=== PATIENT | male | born 1950 | race African-American/Black ===

== ENCOUNTER 2023-10-24 18:08 | Emergency (ER) | payer MEDICAID, SELFPAY ==
--- NOTE | ~2023-10-24 | XR_ITS ---
EXAMINATION: XR CHEST CLINICAL INFORMATION: Pain COMPARISON: None available. TECHNIQUE: 2 views of the chest were obtained. FINDINGS: The cardiac and mediastinal contours are stable. Subsegmental atelectasis at the lung bases. No pleural effusion or pneumothorax. Degenerative changes of the spine. XR/XR chest 2V IMPRESSION: Subsegmental atelectasis at the lung bases.
[2023-10-24 18:40] VITALS: BP 148/82; PULSE 78; O2SAT 97
[2023-10-24 18:49] VITALS: BP 126/63; PULSE 60; RESP 18; TEMP 36.5; O2SAT 95; BMI 25.1
--- NOTE | 2023-10-24 18:53 | ECG_ITS ---
Test Reason : NOSE BLEED Blood Pressure : / mmHG Vent. Rate : 058 BPM Atrial Rate : 058 BPM P-R Int : 202 ms QRS Dur : 096 ms QT Int : 442 ms P-R-T Axes : 055 -19 -15 degrees QTc Int : 433 ms Sinus bradycardia Inferior infarct , age undetermined Abnormal ECG No previous ECGs available Referred By: Baltazar Perez Electronically Signed By:MANUELA OLIVIA MD
--- NOTE | 2023-10-24 18:55 | ED.GENADULT ---
HPI - General Adult General Chief complaint: General Medical Stated complaint: nosebleed Time Seen by Provider: 10/24/23 18:34 Source: patient, RN notes reviewed, old records reviewed and other (Family friend) Mode of arrival: EMS Limitations: language barrier (Patient speaks Uzbek) History of Present Illness HPI narrative: 73-year-old male with past medical history significant for hypertension, diabetes presents for evaluation of a nosebleed. Patient reports that his no started to bleed about 3 hours prior to arrival. He reports he went through for tissue papers of blood. On arrival to the ED the patient reports that his nosebleed seems to have subsided He also complains of left shoulder and left chest pain. He states this happens ?every time I sleep I my left side. ? He reports the pain is worse when he moves his left arm He denies any history of coronary artery disease The patient takes simvastatin, metformin, aspirin but no anticoagulation No other complaints or concerns at this time The patient reports relocate this area about 2 months ago from [place] Related Data Allergies Allergy/AdvReac Type Severity Reaction Status Date / Time Penicillins AdvReac Mild Dizziness Verified 10/24/23 18:52 Review of Systems Constitutional: Constitutional: Denies body ache(s), Denies chills, Denies fever(s) and Denies headache(s) Eyes: Eyes: Denies blurry vision ENT: Denies headache(s) and Reports epistaxis Cardiovascular: Cardiovascular: Reports chest pain and Denies dyspnea Respiratory: Respiratory: Denies cough and Denies dyspnea Gastrointestinal: Gastrointestinal: Denies abdominal pain, Denies nausea and Denies vomiting Musculoskeletal: Musculoskeletal: Reports arthralgias, Denies joint swelling and Denies limited range of motion Integumentary/Breasts: Skin/Breast: Denies rash Neurologic: Denies headache(s) PMFSH Social History Social History Smoked in Last 30 Days: Yes Use of substances other than those prescribed or required for medical reasons: No Advance Directives: No Advance Directives Information Provided: No Physical Exam ED Vital Signs: Vital Signs - 24 hr 10/24/23 18:49 Temperature 97.7 F Pulse Rate 60 Respiratory Rate 18 Blood Pressure 126/63 Pulse Oximetry 95 Oxygen Delivery Method Room Air BMI result Body Mass Index 25.1 Const General: healthy appearing, comfortable, no acute distress, alert and awake Nutritional Appearance: well nourished Orientation/consciousness: patient oriented x3 HENMT Head: Yes normocephalic and Yes atraumatic Eyes Eyelids: Yes eyelids normal Conjunctivae: conjunctivae normal Sclerae: sclerae normal Corneas: corneas normal Pupils: Equal, round and reactive pupils present EOM: EOMs intact bilaterally Neck Neck: Yes full ROM Chest Other: No deformity to the left chest. There is tenderness to palpation left chest wall without crepitus. Resp Effort & Inspection: normal respiratory effort, able to speak in complete sentences and not labored Cardio Rate: regular rate Rhythm: regular rhythm GI Inspection: Yes distended (Soft but slightly distended abdomen) Palpation (GI): Soft to palpation, not firm, nontender, no guarding and not rigid Skin General skin exam: elasticity normal Neuro General: patient oriented x3 Cranial nerves: Yes Equal, round and reactive pupils present and Yes Bilaterally intact EOM present Cognition (Neuro): normal cognition Extrem Other: Moving all extremities well without any obvious deformities. This includes the left upper extremity at the shoulder and the elbow. No tenderness to palpation. Course Reevaluation(s) Reevaluation #1: Patient's repeat troponin without any significant changes. Remains flat. He has had no further nosebleeds. Patient is stable for discharge at this time. He does have a PCP he is able to follow-up with. Time: 22:51 Medical Decision Making Medical Decision Making [facility] Narrative: 73-year-old male presents for evaluation of left-sided chest pain as well as epistaxis. His epistaxis appears to have subsided prior to arrival to the ED. Plan for cardiac workup at this time. His pain is reproducible on exam and he has no history of coronary artery disease, so musculoskeletal origin appears more likely at this time. The patient reports a history of left-sided chest and shoulder pain after sleeping on his left side. Plan for EKG, labs. Differential Diagnosis Differential Diagnoses: The differential diagnosis associated with the presentation includes Epistaxis Anemia ACS Chest wall pain Arthritis Calcific tendinitis Admission/Observation Consideration of admission/observation: Escalation of care including admission/observation considered Consider admission for chest pain, but the patient ruled out for ACS Lab Data [facility] Lab Attestation statement: I reviewed the patient's lab results. Patient has a very mild pancytopenia with leukopenia 4.3, hemoglobin 12.7 hematocrit of 40.5. Platelet count of 113. No significant electrolyte abnormalities. Initial troponin of 9.2 with a repeat of 13.7. 10/24/23 19:49 10/24/23 19:49 Labs: Lab Results 10/24/23 10/24/23 Range/Units 19:49 22:17 WBC 4.3 L (4.8-10.8) X10*3/uL RBC 4.60 (4.60-5.80) X10*6/uL Hgb 12.7 L (14.0-18.0) g/dl Hct 40.5 L (42.0-52.0) % MCV 88.0 (80.0-98.0) fL MCH 27.6 (27.0-33.0) pg MCHC 31.4 (31.0-36.0) g/dl RDW 14.3 (11.0-16.0) % Plt Count 113 L (160-400) X10*3/uL MPV 10.5 (9.4-12.4) fL Immature Gran % (Auto) 0.5 H (0.0-0.4) % Neut % (Auto) 57.9 (45-73) % Lymph % (Auto) 21.9 (20-40) % [place] % (Auto) 9.6 (2-11) % Eos % (Auto) 9.9 H (0-4) % Baso % (Auto) 0.2 (0-2) % Lymph # (Auto) 0.9 L (1.2-4.9) X10*3/uL [place] # (Auto) 0.4 (0.1-1.2) X10*3/uL Eos # (Auto) 0.4 (0.0-0.4) X10*3/uL Baso # (Auto) 0.0 (0.0-0.2) X10*3/uL Abs Immat Gran (auto) 0.02 (0.00-0.03) X10*3/uL Absolute Neuts (auto) 2.5 (2.0-8.3) x10*3/uL Absolute Nucleated RBC 0.000 (0.0-0.012) X10*3/uL Nucleated RBC % (auto) 0.0 (0.0-0.2) /100WBC PT 14.3 H (11.1-13.3) SEC INR 1.2 H (0.9-1.1) Sodium 141 (135-145) mmol/L Potassium 5.1 (3.3-5.1) mmol/L Chloride 107 (96-108) mmol/L Carbon Dioxide 28 (22-29) mmol/L Anion Gap 11 L (12-20) BUN 22 H (9-16) mg/dL Creatinine 0.91 (0.5-1.4) mg/dL Estim Creat Clear Calc 81.7 Estimated GFR > 60 Random Glucose 98 (60-115) mg/dL Calcium 10.2 (8.4-10.2) mg/dL Total Bilirubin 0.4 (0.0-1.0) mg/dL AST 15 (5-37) U/L ALT 14 (0-40) U/L Alkaline Phosphatase 109 (39-117) U/L Troponin I High Sens 9.2 13.7 (<3.5-35.0) ng/L Total Protein 7.2 (6.5-8.0) g/dL Albumin 3.8 (3.5-5.0) g/dL Lipase 25 (8-78) U/L Influenza Type A (PCR) NEGATIVE (Negative) Influenza Type B (PCR) NEGATIVE (Negative) RSV RNA Qual (PCR) NEGATIVE (Negative) SARS-CoV-2 RNA (RT-PCR) NEGATIVE (Negative) Independent Interpretation I performed an independent interpretation of an: EKG (Sinus bradycardia rate of 58 beats per minute. No ST segment elevations or depressions. T-wave inversion in lead 3 and AVF. No previous for comparison) and Plain X-Ray (No focal infiltrate) Radiology Impression Discussion of test interpretation with radiology: I have reviewed the radiologist's reading. (Atelectasis) Discharge Plan Discharge Clinical Impression: Epistaxis, Chest pain Patient Disposition: Home, Self-Care Instructions: Chest Pain (ED), Nosebleed (ED) Additional Instructions: Your workup in the ER today was reassuring. Include your blood work, EKG, and chest x-ray. You have not had any nosebleed in the emergency department. I recommend that you sleep with a humidifier next to her bed at night to prevent further nosebleeds Call your primary doctor in the morning to schedule follow-up
[2023-10-24 19:54] LABS: MANUAL DIFF FLAG NO
[2023-10-24 19:55] LABS: Basophils Percent Auto 0.2 % (0-2); Eosinophils Absolute Auto 0.4 X10*3/uL (0.0-0.4); Eosinophils Percent Auto 9.9 % (0-4); Hematocrit 40.5 % (42.0-52.0); Hemoglobin 12.7 g/dl (14.0-18.0); Imm Gran Abs Auto 0.02 X10*3/uL (0.00-0.03); Imm Gran Pct Auto 0.5 % (0.0-0.4); Lymphocytes Absolute Auto 0.9 X10*3/uL (1.2-4.9); Lymphocytes Percent Auto 21.9 % (20-40); Mean Corpuscular HGB Conc 31.4 g/dl (31.0-36.0); Mean Corpuscular Hemoglobin 27.6 pg (27.0-33.0); Mean Platelet Volume 10.5 fL (9.4-12.4); Monocytes Absolute Auto 0.4 X10*3/uL (0.1-1.2); Monocytes Percent Auto 9.6 % (2-11); Neutrophils Absolute Auto 2.5 x10*3/uL (2.0-8.3); Neutrophils Percent Auto 57.9 % (45-73); Platelet Count 113 X10*3/uL (160-400); Red Cell Distribution Width 14.3 % (11.0-16.0); White Blood Count 4.3 X10*3/uL (4.8-10.8)
[2023-10-24 20:02] LABS: INTERNATIONAL NORM RATIO 1.2 (0.9-1.1); Prothrombin Time 14.3 SEC (11.1-13.3)
[2023-10-24 20:09] LABS: Alanine Aminotransferase 14 U/L (0-40); Albumin Level 3.8 g/dL (3.5-5.0); Alkaline Phosphatase 109 U/L (39-117); Anion Gap 11 (12-20); Aspartate Amino Transferase 15 U/L (5-37); Bilirubin Total 0.4 mg/dL (0.0-1.0); Blood Urea Nitrogen 22 mg/dL (9-16); Calcium 10.2 mg/dL (8.4-10.2); Carbon Dioxide 28 mmol/L (22-29); Chloride 107 mmol/L (96-108); Creatinine Clr Calc Pharmacy 81.7; Estimated Glomerular Filt Rate > 60; Glucose Random 98 mg/dL (60-115); Lipase 25 U/L (8-78); Potassium 5.1 mmol/L (3.3-5.1); Sodium 141 mmol/L (135-145); Total Protein 7.2 g/dL (6.5-8.0)
[2023-10-24 20:17] LABS: Troponin-I High Sensitivity 9.2 ng/L (<3.5-35.0)
[2023-10-24 20:31] LABS: Influenza A PCR NEGATIVE (Negative); Influenza B PCR NEGATIVE (Negative); Resp Syncy Virus RNA Qual PCR NEGATIVE (Negative); SARS COV2 PCR INHOUSE NEGATIVE (Negative)
[2023-10-24 22:44] LABS: Troponin-I High Sensitivity 13.7 ng/L (<3.5-35.0)
[2023-10-24 23:07] VITALS: BP 139/71; PULSE 61; RESP 15; TEMP 36.3; O2SAT 94
== END 2023-10-24 23:08 | disposition home or self-care (01) ==
PROVIDERS: Physician Assistant; Emergency Provider Internal Medicine
DX: R04.0 Epistaxis (principal); R07.89 Other chest pain; R00.1 Bradycardia, unspecified; I10 Essential (primary) hypertension; E11.9 Type 2 diabetes mellitus without complications; Z20.822 Contact with and (suspected) exposure to COVID-19; Z11.52 Encounter for screening for COVID-19; Z79.899 Other long term (current) drug therapy
CPT/HCPCS: 0241U; 36415; 71046; 80053; 83690; 84484; 85025; 85610; 93005; 99283; 99284

== ENCOUNTER → 2023-10-24 18:53 | Outpatient (BNV) | payer MEDICAID, SELFPAY | PROVIDERS: Emergency Provider Internal Medicine; Visit Provider Internal Medicine Cardiovascular Disease | DX: R00.1 Bradycardia, unspecified (principal); R94.31 Abnormal electrocardiogram [ECG] [EKG] | CPT/HCPCS: 93010 ==

== ENCOUNTER 2025-07-23 17:05 | Emergency (ER) | payer MEDICAID, SELFPAY ==
[2025-07-23] VITALS (7 sets, daily range): BP systolic 115–129; BP diastolic 49–68; PULSE 54–68; RESP 16–18; TEMP 36.3–36.9; O2SAT 96–99; BMI 19.6
--- NOTE | ~2025-07-23 | CT_ITS ---
CLINICAL HISTORY: dizziness CT head without contrast Comparison: None provided Findings: BRAIN: No acute infarct, hemorrhage, or mass effect. No abnormal atrophy. CSF SPACES: No hydrocephalus or effacement of basal cisterns. SKULL: No calvarial fracture. SINUSES: Severe ethmoid and left frontal paranasal sinus disease. ORBITS: Limited views are unremarkable. OTHER: Negative. IMPRESSION: 1. No acute intracranial findings. This document has been electronically signed by: Filomena Foster MD on 07/23/2025 18:13:28
--- NOTE | ~2025-07-23 | CT_ITS ---
CLINICAL HISTORY: weight loss. fatigue. Mass, SBO CT abdomen and pelvis without contrast Comparison: None provided Findings: LIMITED CHEST: Scarring and atelectasis at the lung bases. Calcified right hilar lymph nodes. See separate CT chest. LIVER: No focal liver lesion. BILIARY: No gallbladder wall thickening, radiopaque stone, or ductal dilatation. PANCREAS: No mass or ductal dilatation. SPLEEN: No splenomegaly. KIDNEYS: No hydronephrosis or radiopaque stone. Small hypoattenuating lesions, too small to characterize however may represent cysts. ADRENALS: No nodule. VASCULAR: No aneurysm. RETROPERITONEUM: No lymphadenopathy or mass. BOWEL/MESENTERY: No evidence of obstruction. No free fluid or air. Large colonic stool burden. ABDOMINAL WALL: No mass or significant abnormality. URINARY BLADDER: Circumferential thickening of the bladder. PELVIC NODES: No pelvic lymphadenopathy. PELVIC ORGANS: Prostatomegaly. BONES: L1 superior endplate deformity, chronic appearing. OTHER: Negative. IMPRESSION: Large colonic stool burden. Prostatomegaly with circumferential thickening of the bladder. This may be due to chronic outlet obstruction, however correlate with urinalysis for cystitis. This document has been electronically signed by: Filomena Foster MD on 07/23/2025 18:20:18
--- NOTE | ~2025-07-23 | CT_ITS ---
CLINICAL HISTORY: weakness. Pneumonia? CT chest without contrast Comparison: None provided Findings: NECK BASE: Limited views of the thyroid are unremarkable. LUNGS/PLEURA: Emphysematous changes with scarring and atelectasis most pronounced the lower lobes. Scattered pulmonary nodules, the largest in the left upper lobe measuring 9 mm ( series 19, image 80). PULM VASCULAR: Poorly evaluated without IV contrast. MEDIASTINUM: Calcified mediastinal and right hilar lymph nodes. CARDIAC: No pericardial effusion. No cardiomegaly. AORTA: No aneurysm. CHEST WALL: No masses or axillary lymphadenopathy. LIMITED ABDOMEN: Separate CT abdomen pelvis. BONES: No acute fracture. IMPRESSION: 1. Emphysematous changes most pronounced at the lower lobes. 2. Scattered pulmonary nodules, largest in the left upper lobe measuring 9 mm. Follow-up per Fleischner criteria. This document has been electronically signed by: Filomena Foster MD on 07/23/2025 18:25:43
--- NOTE | 2025-07-23 17:11 | ECG_ITS ---
Test Reason : LOW BP Blood Pressure : */* mmHG Vent. Rate : 58 BPM Atrial Rate : 58 BPM P-R Int : 194 ms QRS Dur : 100 ms QT Int : 420 ms P-R-T Axes : 62 23 8 degrees QTcB Int : 412 ms Sinus bradycardia with Premature atrial complexes Inferior-posterior infarct (cited on or before 24-Oct-2023) Abnormal ECG When compared with ECG of 24-Oct-2023 19:25, Premature atrial complexes are now Present Referred By: Richie Mccracken Electronically Signed By: JACQUELINE PLUMMER
--- NOTE | 2025-07-23 17:15 | ED.GENADULT ---
HPI - General Adult General Chief complaint: Recheck/Abnormal Lab/Rx Stated complaint: Blood pressure 79/41 Time Seen by Provider: 07/23/25 19:18 History of Present Illness ED Provider: Caro OLMEDO narrative: The patient is a 75-year-old male who was at home today when he felt somewhat unwell. He had some dizziness and a bit of a headache. Apparently checked his blood pressure at home with his home blood pressure machine and it came at 79/41. This prompted him to come to the emergency room. He was feeling fine yesterday. While waiting to be seen in the emergency room his symptoms have largely resolved. He is feeling much better. He still has a mild headache but no lightheadedness. At no point did he have any chest pain or shortness of breath. No abdominal pain, nausea, vomiting. No diarrhea. No fever, sweats, chills. Related Data Allergies Allergy/AdvReac Type Severity Reaction Status Date / Time Penicillins AdvReac Mild Dizziness Verified 07/23/25 17:13 Review of Systems Review of Systems: Yes all other systems are reviewed and are negative [facility] Social History Social History Smoked in Last 30 Days: No Advance Directives: No Advance Directives Information Provided: Yes Physical Exam ED Vital Signs: Vital Signs - 24 hr 07/23/25 17:10 07/23/25 18:20 07/23/25 18:22 Temperature 97.3 F 98.4 F Pulse Rate 60 68 66 Respiratory Rate 18 16 Blood Pressure 129/60 115/60 118/56 L Pulse Oximetry 98 99 Oxygen Delivery Method Room Air Room Air 07/23/25 18:25 07/23/25 18:27 07/23/25 20:08 Temperature 97.6 F Pulse Rate 54 65 54 Respiratory Rate 18 Blood Pressure 116/49 L 117/61 129/68 Pulse Oximetry 96 Oxygen Delivery Method Room Air 07/23/25 20:13 Temperature 97.6 F Pulse Rate 54 Respiratory Rate 18 Blood Pressure 129/68 Pulse Oximetry 96 Oxygen Delivery Method Room Air BMI result Body Mass Index 19.6 Const Other: The patient is a very slim 75-year-old man who was awake and alert, pleasant and cooperative. He has not appear uncomfortable or appear acutely ill in any way. HENMT Other: The face is symmetrical. ?Mucous membranes moist. Posterior pharynx is normal. Eyes Other: Pupils are round equal, conjunctivae are clear, extraocular movements intact Neck Neck: Yes normal visual inspection, Yes full ROM, Yes no lymphadenopathy and Yes no JVD Resp Effort & Inspection: normal respiratory effort Auscultation: clear to auscultation bilaterally Cardio Rate: regular rate Rhythm: regular rhythm Heart sounds: S1 normal heart sound present and S2 normal heart sound present GI Other: Abdomen is soft and nontender Skin Other: Skin is dry and unremarkable Neuro Other: The patient is awake and alert with a normal mental status. Cranial nerves 2-12 are intact. He moves his extremities symmetrically and appropriately. He seems neurologically intact. Extrem Other: There is no calf swelling or tenderness. No asymmetry. No peripheral edema. Course Course Course Narrative: RME: 74 year male presents to ED for dizziness, headache, low blood pressure at home was 79/41 and also weight loss. Patient states he felt like the room is spinning. Patient denies any fever or chills. Exam negative for obvious neuro deficits. Labs EKG imaging ordered Medications Administered Discontinued Medications Generic Name Dose Route Start Last Admin Trade Name Lakshmi PRN Reason Stop Dose Admin Acetaminophen 975 mg 07/23/25 19:38 07/23/25 20:09 Acetaminophen 325 Mg Tablet PO 07/23/25 19:39 975 mg ONCE ONE Administration Medical Decision Making Medical Decision Making [facility] Narrative: The patient speaks Hungarian and Frisian. I communicated with him primarily through his son. The patient is a 75-year-old male who felt dizzy and lightheaded at home and apparently has a blood pressure of 79/41. He did not have a fever. He came to the emergency room because of the symptoms and his low blood pressure. On arrival here the patient was not hypotensive. The patient has a long wait to be seen by a provider. During that time the patient's symptoms had largely resolved. He was feeling better spontaneously. He has not had a fever. He has not had any other significant infectious symptoms. His exam seems very benign and reassuring. At triage a CT scan of the head, chest, in the abdomen and pelvis, all without contrast. None of the study show any definite acute findings. The abdominal CT shows a large colonic stool burden but does not indicate a fecal impaction or obstipation or stercoral colitis. The chest CT shows some pulmonary nodules but no other significant findings. The patient is creatinine is slightly higher than when last checked almost 2 years ago. His creatinine today is 1.18 today. Previously was 0.91. Perhaps this reflects some mild dehydration but no profound metabolic derangement. He has a normal troponin. His EKG is unchanged from previous. Overall he does not appear clinically unwell in his testing in the emergency room seems reassuring. I think he may be discharged home with the son to follow up with his regular providers or to return if worse. Lab Data 07/23/25 17:41 07/23/25 17:41 Labs: Lab Results 07/23/25 07/23/25 07/23/25 Range/Units 17:40 17:41 18:45 WBC 4.6 L (4.8-10.8) X10*3/uL RBC 4.92 (4.60-5.80) X10*6/uL Hgb 14.2 (14.0-18.0) g/dl Hct 43.8 (42.0-52.0) % MCV 89.0 (80.0-98.0) fL MCH 28.9 (27.0-33.0) pg MCHC 32.4 (31.0-36.0) g/dl RDW 13.3 (11.0-16.0) % Plt Count 118 L (160-400) X10*3/uL MPV 10.8 (9.4-12.4) fL Immature Gran % (Auto) 0.4 (0.0-0.4) % Neut % (Auto) 58.0 (45-73) % Lymph % (Auto) 25.2 (20-40) % [place] % (Auto) 10.1 (2-11) % Eos % (Auto) 6.1 H (0-4) % Baso % (Auto) 0.2 (0-2) % Lymph # (Auto) 1.2 (1.2-4.9) X10*3/uL [place] # (Auto) 0.5 (0.1-1.2) X10*3/uL Eos # (Auto) 0.3 (0.0-0.4) X10*3/uL Baso # (Auto) 0.0 (0.0-0.2) X10*3/uL Abs Immat Gran (auto) 0.02 (0.00-0.03) X10*3/uL Absolute Neuts (auto) 2.7 (2.0-8.3) x10*3/uL Absolute Nucleated RBC 0.000 (0.0-0.012) X10*3/uL Nucleated RBC % (auto) 0.0 (0.0-0.2) /100WBC Sodium 136 (135-145) mmol/L Potassium 5.0 (3.3-5.1) mmol/L Chloride 101 (96-108) mmol/L Carbon Dioxide 30 H (22-29) mmol/L Anion Gap 10 L (12-20) BUN 19 H (9-16) mg/dL Creatinine 1.18 (0.5-1.4) mg/dL Estim Creat Clear Calc 54.5 Estimated GFR > 60 Random Glucose 121 H (60-115) mg/dL Calcium 10.2 (8.4-10.2) mg/dL Total Bilirubin 0.3 (0.0-1.0) mg/dL AST 26 (5-37) U/L ALT 19 (0-40) U/L Alkaline Phosphatase 80 (39-117) U/L Troponin I High Sens 10.1 (<3.5-35.0) ng/L Total Protein 7.9 (6.5-8.0) g/dL Albumin 4.5 (3.5-5.0) g/dL Lipase 27 (8-78) U/L Urine Color Yellow Urine Appearance Clear Urine pH 6.5 (5.0-9.0) Ur Specific [place] 1.015 (1.005-1.025) Urine Protein Negative (Neg-Trace) mg/dL Urine Glucose (UA) >=1000 H (Negative) mg/dL Urine Ketones Negative (Negative) mg/dL Urine Blood Negative (Negative) Urine Nitrite Negative (Negative) Ur Leukocyte Esterase Negative (Negative) Urine RBC 0-2 (0-2) /HPF Urine WBC 0-5 (0-5) /HPF Ur Squamous Epith Cells 0-2 (0-2) /HPF Urine Bacteria None Seen (None Seen) Hyaline Casts 0-2 (0-2) /LPF COVID-19 (DEBBY) Negative (Negative) COVID-19 Clin Com See Note Influenza Type A (MIKE) Negative (Negative) Influenza Type B (MIKE) Negative (Negative) Influenza A & B Note See Note Independent Interpretation I performed an independent interpretation of an: EKG Interpretation: EKG at 17:29 shows sinus bradycardia at 58 beats per minute. No significant change from previous EKG. Discharge Plan Discharge Clinical Impression: Dizziness, Headache, Hypotension, Incidental pulmonary nodule Patient Disposition: Home, Self-Care Additional Instructions: Your testing today is not showing any acutely dangerous process. I do not have a good explanation for why you had low blood pressure earlier today. Your blood pressure currently seems fine as do your other vital signs. You may be mildly dehydrated. Please make sure you take a lot of fluid at home and over the next several days. You may use acetaminophen for any ongoing headache. Continue your other regular medications. The CAT scan of your chest showed some nodules in your lungs. The significance of this finding is unclear. Please follow up with your regular doctor to discuss how these will be monitored over time. Therefore please follow up with your regular doctor to discuss this incident and also the CAT scan results. If you feel significantly worse at any time please return to the emergency department. Referrals: [facility] [Provider Group] Interventions: ED Discharge Assessment Last Done: 07/23/25 20:13 Discharge Date/Time: 07/23/25 20:14 Print Language: Other
[2025-07-23 17:47] LABS: MANUAL DIFF FLAG NO
[2025-07-23 17:51] LABS: Imm Gran Abs Auto 0.02 X10*3/uL (0.00-0.03); Imm Gran Pct Auto 0.4 % (0.0-0.4); Lymphocytes Absolute Auto 1.2 X10*3/uL (1.2-4.9); NRBC Abs Auto 0.000 X10*3/uL (0.0-0.012); NRBC Pct Auto 0.0 /100WBC (0.0-0.2); PLT CLUMP 1; SCAN SMEAR FLAG 1
[2025-07-23 17:53] LABS: Hematocrit 43.8 % (42.0-52.0); Hemoglobin 14.2 g/dl (14.0-18.0); Mean Corpuscular HGB Conc 32.4 g/dl (31.0-36.0); Mean Corpuscular Hemoglobin 28.9 pg (27.0-33.0); Mean Corpuscular Volume 89.0 fL (80.0-98.0); Red Blood Count 4.92 X10*6/uL (4.60-5.80)
[2025-07-23 17:55] LABS: Platelet Count 118 X10*3/uL (160-400); White Blood Count 4.6 X10*3/uL (4.8-10.8)
[2025-07-23 18:03] LABS: Alanine Aminotransferase 19 U/L (0-40); Albumin Level 4.5 g/dL (3.5-5.0); Alkaline Phosphatase 80 U/L (39-117); Anion Gap 10 (12-20); Aspartate Amino Transferase 26 U/L (5-37); Blood Urea Nitrogen 19 mg/dL (9-16); Calcium 10.2 mg/dL (8.4-10.2); Carbon Dioxide 30 mmol/L (22-29); Chloride 101 mmol/L (96-108); Creatinine Clr Calc Pharmacy 54.5; Estimated Glomerular Filt Rate > 60; Lipase 27 U/L (8-78); Potassium 5.0 mmol/L (3.3-5.1); Sodium 136 mmol/L (135-145); Total Protein 7.9 g/dL (6.5-8.0)
[2025-07-23 18:09] LABS: Troponin-I High Sensitivity 10.1 ng/L (<3.5-35.0)
[2025-07-23 18:20] LABS: IDNOW Serial# 58CA691E; Influenza B2 Negative (Negative)
[2025-07-23 18:20] LABS: COVID-19 Test Negative (Negative); IDNOW Serial# 55D5AD1C
--- OUTSIDE RECORDS SUMMARY | 2025-07-23 18:34 | XMS_ITS | Data Portability ---
Author Organization [place] - [facility], Allergy Address [address] [address] Care Team Providers Care Investigations Chief Name Role Phone ALYSSA TESFAYE Primary Care Provider Assessment Encounter Date Assessment Date Assessment LastModified by Organization Details LastModified Time 07/13/2024 07/13/2024 Patient found to have nasal polyps during recent workup for positional vertigo. Fortunately his vertigo has resolved. He has history of ED following prostate surgery, pulmonary granulomas and small thyroid nodules. Reports longstanding history of swallowing difficulties that was worked up in [facility]. It sounds like he had a barium swallow but it is unclear whether he had an EGD. Examination shows bilateral nasal polyps with a normal larynx. Suggest GI evaluation for his swallowing his nephew will discuss this with his PCP. I have suggested fluticasone nasal spray for the nasal polyps. [email or web address] Not available 07/13/2024 09:47:46 Plan of Treatment Reminders Order Date Submit Date Provider Last Modified By Organization Details Last Modified Time Details Appointments None recorded. Lab None recorded. Referral None recorded. Procedures None recorded. Surgeries None recorded. Imaging None recorded. Medication Orders fluticasone propionate 50 mcg/actuati on nasal spray,suspe nsion 2023 024 [facility] #[id number], [address] [facility], [place], [address], 09:48:24 Patient TargetsNo targets recorded. Patient InstructionsNo instructions recorded. Reason for Referral None Reported. Problems Name Problem SNOMED Code Status Onset Date Resolution Date Notes Provider Name and Address Organization Details Recorded Time Chronic sinusitis 62947795 Active 2023 ISAIAS LEE MD [address] [facility],[address], [place], [address], [facility] - [facility] 4 09:47:50 Polyp of nasal cavity 658674432 Active 2023 ISAIAS LEE MD [address] [facility], [address], [place], [address], [facility] - [facility] 4 09:47:55 Impacted cerumen in left ear 89583726531662 01 Active 2023 ISAIAS LEE MD [address] [facility], [address], [place], [address], [facility] - [facility] 4 09:48:30 Dysphagia 42527784 Active 2023 ISAIAS LEE MD [address] [facility],[place] [address], [place], [address], [facility] 4 09:48:44 Problem Notes None recorded. Procedures Surgical History Date Name Laterality Status Provider Name and Address Organization Details Recorded Time 07/13/20 24 Fiberoptic Laryngoscopy (Comprehensive) completed ISAIAS COWAN MD [address], [address], [facility] 07/13/2024 09:46:24 prostatectomy completed Devon Watkins [facility] 07/13/2024 09:02:55 Imaging Results None recorded. Procedure Notes None recorded. Medical Equipment None Reported. Allergies Allergen ID Allergen Name Allergen Category Reaction Reaction Severity Criticality Documentation Date Start Date Code Code System Note Provider Name and Address Organization Details Recorded Time 219679 Product containin g penicilli n (product) medicatio n Not available Not available Not available 07/13/2024 50101 8001 SNOMED Devon sanchez [place] [facility] 4 09:01:52 Medications Name Sig Start Date Stop Date Status Note LastModified by Organization Details LastModified Time isosorbide mononitrate ER 30 mg tablet,exten ded release 24 hr Take 1 Tablet by mouth every morning active Not Available Not Available No t Available acetaminophe n 500 mg tablet active Not Available Not Available Not Available meclizine 25 mg tablet active Not Available Not Available No t Available metformin 1,000 mg tablet Take 1 Tablet by mouth 2 (two) times daily with a meal Indications type 2 diabetes mellitus active Not Available Not Available No t Available aspirin [address] 1 Tablet into mouth, chew and swallow once daily active Not Available Not Available N ot Available telmisartan 20 mg tablet Take 1 Tablet by mouth once daily active Not Available Not Available No t Available fluticasone propionate 50 mcg/actuatio n nasal spray,suspen lilia USE 2 SPRAYS INTO EACH NOSTRIL EVERY DAY active Not Available Not Available No t Available rosuvastatin 20 mg tablet Take 1 Tablet by mouth nightly at bedtime active Not Available Not Available No t Available Jardiance 10 mg tablet Take 1 Tablet by mouth once daily active Not Available Not Available No t Available Vitals Date Recorded Body height Body mass index (BMI) Body weight Provider Name and Address Organization Details Last Updated DateTime 07/13/2024 185.42 cm 22.6 kg/m2 68924.3 g Devon Koch [facility] 07/13/2024 09:06:32 Social History None recorded. Functional Status None recorded. Mental Status None recorded. Family History Nothing Reported. Medical History Condition Response Migraines Y Thyroid Problems Y Diabetes Y Cancer Y Hypertension Y Past Encounters Encounter ID Performer Location Encounter Start Date Encounter Closed Date Diagnosis/Indication Diagnosis SNOMED-CT Code Diagnosis ICD10 Code Diagnosis IMO Codes Diagnosis Note [id number] ISAIAS GRIGGS MD [facility] [address] [address] 07/13/2024 08:55:32 07/13/2024 09:52:13 Chronic sinusitis 98052280 J32.9 Polyp of nasal cavity 73 7522430 J33.0 Impacted c erumen in left ear 3039993326 429839 H61.22 Suggested 3 drops distilled vinegar in each ear twice weekly to prevent the buildup of cerumen Dysphagia 73745190 R13.1 0 sugget f/u with PCP and consider GI eval Health Concerns Section Related Observation LastModified by Organization Detai ls LastModified Time None Recorded Concern Status LastModified by Organization Details LastModified Time None Recorded Advance Directives Directive None Recorded Payers Insurance Date Sequence Insurance Name Policy Number Policy Dillard Covered Member ID Dillard Member ID Guarantor Name 08/17/2024 1 [place] [facility] [id number] [facility] Notes Date Note Type Note Provider Name and Address Organization Details Recorded Time 07/13/2024 text/html ROS as noted in the HPI Seen for opinion re polyps noted on MRI. [place] male seen with his nephew. He was a refugee in [place] and had workup for swallowing difficulty. 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
[2025-07-23 18:55] LABS: Appearance Urine Clear; Glucose Urine UA >=1000 mg/dL (Negative); PH 6.5 (5.0-9.0); Specific Gravity - Urine 1.015 (1.005-1.025); UMIC TRIGGER UACC YES
== END 2025-07-23 20:14 | disposition home or self-care (01) ==
PROVIDERS: Physician Assistant; Emergency Provider Emergency Medicine
DX: I95.9 Hypotension, unspecified (principal); R79.89 Other specified abnormal findings of blood chemistry; R00.1 Bradycardia, unspecified; R51.9 Headache, unspecified; R91.1 Solitary pulmonary nodule; R10.20 Pelvic and perineal pain unspecified side; Z11.52 Encounter for screening for COVID-19; Z79.899 Other long term (current) drug therapy
CPT/HCPCS: 70450; 71250; 74176; 80053; 81001; 83690; 84484; 85025; 87502; 87635; 93005; 96365; 99285

== ENCOUNTER → 2025-07-23 17:11 | Outpatient (BNV) | payer MEDICAID, SELFPAY | PROVIDERS: Emergency Provider Emergency Medicine; Visit Provider Internal Medicine | DX: R00.1 Bradycardia, unspecified (principal); I49.1 Atrial premature depolarization; I25.2 Old myocardial infarction | CPT/HCPCS: 93010 ==

== ENCOUNTER → 2025-07-23 17:11 | Outpatient (BNV) | payer MEDICAID, SELFPAY | PROVIDERS: Visit Provider Student in an Organized Health Care Education/Training Program | DX: N40.0 Benign prostatic hyperplasia without lower urinary tract symptoms (principal); N32.89 Other specified disorders of bladder; J43.9 Emphysema, unspecified; R91.8 Other nonspecific abnormal finding of lung field; R42 Dizziness and giddiness | CPT/HCPCS: 70450; 71250; 74176 ==